=== PATIENT | female | born 1985 | race Caucasian/White ===

== ENCOUNTER → 2020-07-29 00:59 | Outpatient (CLI) | payer BC, SELFPAY ==
[2020-07-29 19:38] LABS: SARS-CoV-2 RNA PCR Negative
== END ==
PROVIDERS: Visit Provider Obstetrics & Gynecology Gynecologic Oncology
DX: Z01.812 Encounter for preprocedural laboratory examination (principal); Z20.822 Contact with and (suspected) exposure to COVID-19
CPT/HCPCS: C9803; U0003; U0005

== ENCOUNTER 2020-07-29 08:06 | Outpatient (CLI) | payer BC, SELFPAY ==
[2020-07-29 08:24] LABS: Hematocrit 41.2 % (37.0-47.0); Hemoglobin 13.7 g/dL (12.0-15.0); Mean Corpuscular HGB Conc 33.3 g/dl (32-36); Mean Corpuscular Hemoglobin 29.1 pg (26-34); Mean Corpuscular Volume 87.7 fl (80-100); Mean Platelet Volume 9.2 fl (7.4-10.4); Platelet Count Result 189 k/mm3 (150-375); Red Cell Distribution Width 11.5 % (11.5-14.5); White Blood Count 4.9 K/mm3 (4.5-10.0)
== END 2020-07-29 08:07 | disposition home or self-care (01) ==
PROVIDERS: PCP Internal Medicine; Visit Provider Obstetrics & Gynecology Gynecologic Oncology
DX: Z01.812 Encounter for preprocedural laboratory examination (principal); N92.0 Excessive and frequent menstruation with regular cycle
CPT/HCPCS: 36415; 85027; 86850; 86900; 86901

== ENCOUNTER 2020-08-01 00:20 | Day surgery (SDC) | payer BC, SELFPAY ==
[2020-07-18 10:39] VITALS: BMI 30.9
[2020-08-01] VITALS (11 sets, daily range): BP systolic 102–119; BP diastolic 58–78; PULSE 61–99; RESP 12–17; TEMP 36.1–36.9; O2SAT 99–100; BMI 30.4
[2020-08-01] MEDS: GABAPENTIN 300 MG CAPSULE PO (11:35)
[2020-08-01] MEDS: ACETAMINOPHEN 500 MG TABLET 1000 MG PO (11:35)
[2020-08-01] MEDS: LACTATED RINGERS 1,000 ML 30 ML IV CONT ×2 (11:35→14:29)
--- NOTE | 2020-08-01 11:38 | WPDANESEPPF ---
Anes - Initial Pre Proc Eval Procedure: Operation Date: 08/01/20 12:00 Proposed Procedures p Diagnostic Laparoscopy Possible Right Cystectomy, Bilateral Salpingectomy, Intrauterine Device Removal, Hysteroscopy Dilatation And Curettage With Novasure Ablation - Lara Velasco DO Date/Time: 08/01/20 11:38 Surgeon: Laar Velasco DO Pre Op Diagnosis: Rt ovarian cyst, Sterilization, menorrhagia Patient Data Age: 34 Gender: F Height: 5 ft 4 in Weight: 80.3 kg Last Vital Signs Temp 36.9 C 08/01/20 11:12 Pulse 99 08/01/20 11:12 Resp 14 08/01/20 11:12 BP 119/78 08/01/20 11:12 Pulse Ox 99 08/01/20 11:12 Allergies Allergy/AdvReac Type Severity Reaction Status Date / Time No Known Allergies Allergy Verified 08/01/20 11:11 Home Medications Medication Instructions Recorded Confirmed Type clonazepam 0.5 mg PO HS 07/18/20 08/01/20 History duloxetine [Cymbalta] 90 mg PO HS 07/18/20 08/01/20 History vitamin A-vitamin C-vitamin E 1 tablet PO DAILY 07/18/20 08/01/20 History [Beta Greens] Patient hx anesthesia problems: none and other (motion sickness) Family hx anesthesia problems: none PMFSH Past Medical History Medical History Anxiety Family History Family History Other Family history of allergic disorder Hypertension Social History Social History Smoking status: Never smoker Alcohol intake: current Alcohol use details: RARE Substance use: never Substance use type: does not use Living arrangements: with family Spiritual care concerns: No Anes - Eval Final PreProcedure Day of Procedure 08/01/20 11:38 Patient weight: overweight Heart: regular rate and rhythm Lungs: clear to auscultation Airway: Mallampati scale class 1 Neurological: alert and oriented Last oral intake: >/= 8 hours ASA classification: II Emergent: no Anesthetic plan: proceed Anesthesia type and monitoring: general ETT and standard monitoring Informed Consent: The patient's anesthetic plan and its attendant risks and benefits were discussed with the patient/family/POA. Questions were solicited and answers provided to the satisfaction of the patient/family/POA.
[2020-08-01] MEDS: SCOPOLAMINE 1.5 MG PATCH TRANSDERM (11:56)
--- NOTE | 2020-08-01 11:57 | WPDHPUPDATE1 ---
History and Physical Update Update Date/Time: 08/01/20 11:57 History and Physical has been reviewed, including an updated exam of the patient. There are NO changes in the patient's condition. Risks, benefits, and alternatives have been discussed and questions answered. Patient agrees to proceed with procedure - Diagnostic laparoscopy, possible right ovarian cystectomy, bilateral salpingectomy, hysteroscopy, D&C, Mirena removal and Novasure ablation.
[2020-08-01] MEDS: BUPIVACAINE/EPINEPHRINE 0.25% 10 ML VIAL 20 ML INFILTRATE (13:45)
--- NOTE | 2020-08-01 14:26 | W.PM.PROC2 ---
Procedure Note - Detailed Date of Procedure 08/01/20 Pre-op Diagnosis Rt ovarian cyst, Sterilization, menorrhagia, Left lower quadrant pain Post-op Diagnosis other (Endometriosis, stage II) Procedure Performed Hysteroscopy, D&C, IUD removal, Novasure ablation. Diagnostic laparoscopy, right ovarian cyst drainage, ablation of endometriosis, bilateral salpingectomy Surgeon Lara Velasco DO [facility] Anesthesia general Indications Left lower quadrant pain, right ovarian cyst, desire for sterilization, menorrhagia Findings The vulva and vaginal canal were normal. The cervix was normal. The uterine cavity was normal contour and size. Sounded to 8.5 cm. Internally, the liver appeared grossly normal. The bowel was extremely dilated with gas. There was a small omental adhesion just caudad to the umbilical incision. The right ovary contained a small 2 cm cyst, the right tube contained a paratubal cyst. The uterus, ovaries, bladder flap, rectosigmoid colon and posterior cul-de-sac were all covered with copious amounts of filmy, gelatinous adhesions and implants, likely endometriosis. The cul-de-sac was not obliterated, anatomy was maintained but this sticky material was on all pelvic surfaces. There was a moderate amount of scarring at the bladder flap. Description of Procedure The patient was taken to the operating room where she was placed under general anesthesia. She was placed in the dorsal lithotomy position in [facility] where she was prepped and draped in the normal, sterile fashion. No antibiotics were indicated. A timeout was performed. A lundberg catheter was placed. A speculum was placed in the vagina and the cervix visualized. The anterior lip was grasped with a tenaculum. The IUD was removed. A paracervical block using marcaine with epi was performed. The cervix was then dilated up to accommodate the hysteroscope. The scope was inserted and the cavity was found to normal contour. There was a small blood clot from the IUD removal so the ostia were visualized but the view was not completely clear. The scope was removed. A sharp curettage of the cavity was performed and a small amount of tissue was removed. The uterus sounded to 8.5 cm, the cavity length was 4.5 cm, the width was 4.4 cm. The Novasure was activated in the cavity for 83 seconds at 109 franco. The Novasure was removed and a Kroner uterine manipulator was placed. The tenaculum and speculum were removed. Gloves were changed and attention was then turned to the abdomen. The skin under the umbilicus was elevated with penetrating towel clamps and injected with local containing epinephrine. An incision was made and a Veress needle was introduced. A saline water droplet test was performed to ensure intraperitoneal placement. CO2 insufflation was started and once an appropriate filling pressure was noted the abdomen was brought up to 15 mm Hg. The Veress was replaced with a 5 mm optiview trocar and the camera was inserted. Survey of the abdomen revealed an abnormally dilated bowel, inspection was performed to ensure no insufflation had been introduced into the bowel. It appeared free of injury and this generalized dilation was noted through the large and even some of the small intestine. The uterus was elevated and the above mentioned findings were noted. The filmy, gelatinous adhesions were noted on all pelvic surfaces. The anatomy was maintained but these implants were copious and likely consistent with endometriosis. The bladder flap had moderate scarring. The posterior cul-de-sac was maintained but there were filmy adhesions between the uterus and the bowel. The left tube was elevated and transected off using the Ligasure, this was passed off. The serosal tissue that appeared abnormal was ablated with the Ligasure and a biopsy of it was taken. The right tube was then elevated and transected off. The paratubal cyst had to be ruptured as it wouldn't fit in a 5 mm trocar. The small cyst on the right ovary ap
[2020-08-01] MEDS: KETOROLAC 30 MG/ML VIAL (*BKC) IV PUSH (14:48)
== END 2020-08-01 17:25 | disposition home or self-care (01) ==
PROVIDERS: PCP Internal Medicine; Visit Provider Obstetrics & Gynecology Gynecologic Oncology
PROC: (CPT 49320; principal; 2020-08-01 12:00)
DX: N92.0 Excessive and frequent menstruation with regular cycle (principal); N83.201 Unspecified ovarian cyst, right side; N70.11 Chronic salpingitis; N71.1 Chronic inflammatory disease of uterus; Z30.2 Encounter for sterilization; R10.32 Left lower quadrant pain; Z30.432 Encounter for removal of intrauterine contraceptive device; N83.8 Other noninflammatory disorders of ovary, fallopian tube and broad ligament; N73.6 Female pelvic peritoneal adhesions (postinfective); N80.3 Endometriosis of pelvic peritoneum; F41.9 Anxiety disorder, unspecified
CPT/HCPCS: 58661; 58662; 58563; 58301; 88302; 88305; A9270; J1100; J1885; J2250; J2405; J2704; J2710; J3010; J7030; J7120